=== PATIENT | female | born 1975 | race Caucasian/White ===

== ENCOUNTER 2020-09-18 20:55 | Emergency (ER) | payer MEDICAID ==
[~2020-09-18] VITALS: Ht 157.5 cm; Wt 111.1 kg
[2020-09-18 22:12] VITALS: BP 151/96
--- NOTE | 2020-09-18 22:15 | NUR ---
triaged and waiting in tent.
--- NOTE | 2020-09-18 22:30 | NUR ---
SEEN AND EXAMINED BY [facility] WITH ORDERS, CARRIED OUT
[2020-09-18] MEDS ORDERED: cefTRIAXone 1,000 MG in LIDOCAINE MPF 1% 2.1 ML IM ONE (22:35)
[2020-09-18] MEDS ORDERED: ALBUTEROL HFA MDI 90 MCG/ACTUATION 8 GM INH ONE (22:35)
[2020-09-18] MEDS ORDERED: AZITHROMYCIN 250 MG TAB PO ONE (22:35)
[2020-09-18] MEDS ORDERED: DEXAMETHASONE 4 MG/ML VIAL IM ONE (22:35)
[2020-09-18] MEDS ORDERED: cefTRIAXone 1,000 MG VIAL ONE (22:54)
[2020-09-18] MEDS ORDERED: LIDOCAINE MPF 1% 5 ML ONE (22:54)
--- NOTE | 2020-09-18 23:10 | NUR ---
MEDICATED PER [facility] ORDER, CARRIED OUT.
--- NOTE | 2020-09-18 23:14 | NUR ---
SWAB DONE AND SENT TO LAB
--- NOTE | 2020-09-19 00:45 | NUR ---
ALL RESULTS BACK AND NOTED BY ERMD AND FOR D/C
[2020-09-19 00:55] VITALS: BP 121/73
--- NOTE | 2020-09-19 00:55 | NUR ---
Patient discharged with v/s stable. Written and verbal after care instructions given and explained. Patient alert, oriented and verbalized understanding of instructions. Ambulatory with steady gait. All questions addressed prior to discharge. ID band removed. Patient advised to follow up with PMD. Rx of PREDNISONE, AZITHROMYCIN, VENTOLIN,AUGMENTIN given. Patient educated on indication of medication including possible reaction and side effects. Opportunity to ask questions provided and answered.
== END 2020-09-19 00:55 | disposition home or self-care (01) ==
LOC: MED 20:55
DX: U07.1 COVID-19 (principal)
CPT/HCPCS: 71045; 87426; 87804; 96372; 99284; J0696; J1100; J2001; J3535

== ENCOUNTER 2024-01-22 23:01 | Emergency (ER) | payer MEDICAID, OTHER ==
[~2024-01-22] VITALS: Ht 160 cm; Wt 97.5 kg
[2024-01-22 23:11] VITALS: BP 113/57; PULSE 59; RESP 16; TEMP 96.9; O2SAT 100
[2024-01-23 01:16] LABS: APPEARANCE,URINE SL CLOUDY (CLEAR); BILIRUBIN,URINE NEGATIVE (NEGATIVE); BLOOD, URINE 1+ (NEGATIVE); COLOR,URINE YELLOW (YELLOW); LEUKOCYTE ESTERASE ,URINE 2+ (NEGATIVE); NITRITE, URINE POSITIVE (NEGATIVE); PROTEIN,URINE NEGATIVE (NEGATIVE); UGLUCOSE NEGATIVE (NEGATIVE); UROBILINOGEN,URINE 0.2 EU/dL (0.2 - 1)
[2024-01-23 01:24] LABS: BACTERIA,URINE >30 (MANY) /HPF (None Seen); MUCUS,URINE 1+ /LPF (None Seen); SQUAMOUS EPITHELIAL CELL,UR 0-3 (FEW) /LPF (0-3 (FEW))
[2024-01-23 01:25] LABS: BASOPHILS # (AUTO) 0.1 K/uL (0.00-0.22); BASOPHILS % (AUTO) 0.4 % (0.0-2.0); EOSINOPHILS # (AUTO) 0.1 K/uL (0-0.4); EOSINOPHILS % (AUTO) 0.9 % (0.0-4.0); HEMATOCRIT 37.7 % (36-48); HEMOGLOBIN 12.1 g/dL (12.0-16.0); LYMPHOCYTES # (AUTO) 4.2 K/uL (2.5-16.5); LYMPHOCYTES % (AUTO) 27.7 % (20.5-51.1); MEAN CORPUSCULAR HEMOGLOBIN 28 pg (27-31); MEAN CORPUSCULAR HGB CONC 32 g/dL (33-37); MEAN CORPUSCULAR VOLUME 85.9 fL (80-94); MONOCYTES # (AUTO) 1.1 K/uL (0.8-1.0); NEUTROPHILS # (AUTO) 9.7 K/uL (1.8-7.7); PLATELET COUNT (AUTO) 364 K/uL (140-450); RED CELL DISTRIBUTION WIDTH 15.2 % (11.6-13.7); WHITE BLOOD COUNT (AUTO) 15.1 K/uL (4.8-10.8)
[2024-01-23] MEDS: MORPHINE SULFATE 4 MG/ML SYR IVP ONE (01:30)
[2024-01-23] MEDS: ONDANSETRON 4 MG/2 ML VIAL IVP ONE (01:30)
[2024-01-23 01:35] LABS: ANION GAP 12.4 (8-16); CARBON DIOXIDE 29.5 mmol/L (21-32); POTASSIUM 3.9 mmol/L (3.5-5.1)
[2024-01-23 01:42] LABS: ALBUMIN 3.4 g/dL (3.4-5.0); BILIRUBIN,DIRECT 0.1 mg/dL (0.0-0.3); TOTAL BILIRUBIN 0.2 mg/dL (0.0-1.0); TOTAL PROTEIN, SERUM 7.8 g/dL (6.4-8.2)
[2024-01-23] MEDS ORDERED: LEVO750T75 PO (06:27)
[2024-01-23] MEDS ORDERED: NAPR-337 PO (06:27)
[2024-01-23] MEDS ORDERED: ACET-10509 PO (06:27)
[2024-01-23 06:48] VITALS: BP 102/62; PULSE 62; RESP 16; TEMP 98.2; O2SAT 100
== END 2024-01-23 06:48 | disposition home or self-care (01) ==
LOC: MED 23:01
DX: K80.20 Calculus of gallbladder without cholecystitis without obstruction (principal); Z79.899 Other long term (current) drug therapy
CPT/HCPCS: 36415; 74176; 80048; 80076; 81001; 81025; 83690; 85025; 87086; 96374; 96375; 99285; J2270; J2405

== ENCOUNTER 2024-03-31 02:00 | Emergency (ER) | payer OTHER ==
[~2024-03-31] VITALS: Ht 160 cm; Wt 98.9 kg
[~2024-03-31 02:00] MED LIST: ACET-10509 PO; LEVO750T75 PO; NAPR-337 PO
[2024-03-31 02:03] VITALS: BP 134/68; PULSE 62; RESP 16; TEMP 96.7; O2SAT 99
[2024-03-31 02:54] LABS: APPEARANCE,URINE CLEAR (CLEAR); BILIRUBIN,URINE NEGATIVE (NEGATIVE); BLOOD, URINE TRACE-I (NEGATIVE); COLOR,URINE YELLOW (YELLOW); LEUKOCYTE ESTERASE ,URINE NEGATIVE (NEGATIVE); NITRITE, URINE NEGATIVE (NEGATIVE); PROTEIN,URINE NEGATIVE (NEGATIVE); UGLUCOSE NEGATIVE (NEGATIVE); UROBILINOGEN,URINE 0.2 EU/dL (0.2 - 1)
[2024-03-31 03:00] VITALS: BP 134/68; PULSE 62; RESP 16; TEMP 96.7; O2SAT 98
[2024-03-31 03:08] LABS: BASOPHILS # (AUTO) 0.1 K/uL (0.00-0.22); BASOPHILS % (AUTO) 0.6 % (0.0-2.0); EOSINOPHILS # (AUTO) 0.2 K/uL (0-0.4); EOSINOPHILS % (AUTO) 1.6 % (0.0-4.0); HEMATOCRIT 34.7 % (36-48); HEMOGLOBIN 11.2 g/dL (12.0-16.0); LYMPHOCYTES # (AUTO) 5.5 K/uL (2.5-16.5); LYMPHOCYTES % (AUTO) 36.2 % (20.5-51.1); MEAN CORPUSCULAR HEMOGLOBIN 28 pg (27-31); MEAN CORPUSCULAR HGB CONC 33 g/dL (33-37); MEAN CORPUSCULAR VOLUME 85.2 fL (80-94); MONOCYTES # (AUTO) 1.2 K/uL (0.8-1.0); MONOCYTES % (AUTO) 7.6 % (1.7-9.3); NEUTROPHILS # (AUTO) 8.1 K/uL (1.8-7.7); PLATELET COUNT (AUTO) 309 K/uL (140-450); RED BLOOD CELL COUNT(AUTO) 4.07 MIL/uL (4.20-5.40); RED CELL DISTRIBUTION WIDTH 14.8 % (11.6-13.7); WHITE BLOOD COUNT (AUTO) 15.1 K/uL (4.8-10.8)
[2024-03-31 03:12] LABS: BACTERIA,URINE FEW /HPF (None Seen); MUCUS,URINE 1+ /LPF (None Seen); RBC,URINE 0-5 /HPF (0-5); SQUAMOUS EPITHELIAL CELL,UR 0-3 (FEW) /LPF (0-3 (FEW)); WBC,URINE 0-5 /HPF (0-5)
[2024-03-31 03:22] LABS: ANION GAP 12.1 (8-16); CALCIUM 9.1 mg/dL (8.5-10.1); CARBON DIOXIDE 25.5 mmol/L (21-32); CREATININE 0.9 mg/dL (0.6-1.3); POTASSIUM 3.6 mmol/L (3.5-5.1)
[2024-03-31 03:29] LABS: ALBUMIN 2.9 g/dL (3.4-5.0); BILIRUBIN,DIRECT 0.1 mg/dL (0.0-0.3); TOTAL BILIRUBIN 0.3 mg/dL (0.0-1.0); TOTAL PROTEIN, SERUM 7.2 g/dL (6.4-8.2)
[2024-03-31] MEDS: KETOROLAC 30 MG/ML VIAL IM ONE (04:36)
[2024-03-31] MEDS: ONDANSETRON 4 MG ODT PO ONE (04:38)
[2024-03-31] MEDS ORDERED: ONDA-188 PO (05:31)
[2024-03-31] MEDS ORDERED: IBUP-2213 PO (05:31)
== END 2024-03-31 05:55 | disposition home or self-care (01) ==
LOC: MED 02:00
DX: K80.20 Calculus of gallbladder without cholecystitis without obstruction (principal); K80.50 Calculus of bile duct without cholangitis or cholecystitis without obstruction; D64.9 Anemia, unspecified; Z79.1 Long term (current) use of non-steroidal anti-inflammatories (NSAID); Z79.2 Long term (current) use of antibiotics; Z79.899 Other long term (current) drug therapy
CPT/HCPCS: 36415; 76705; 80048; 80076; 81001; 81025; 83690; 85025; 96372; 99285; J1885; Q0092; Q0162; 99283